=== PATIENT | male | born 1970 | race Caucasian/White ===

== ENCOUNTER 2016-12-15 12:25 | Inpatient (IN) | payer OTHER ==
[~2016-12-15] VITALS: Ht 172.7 cm; Wt 104.3 kg
--- NOTE | 2016-12-15 12:58 | ED GI/GU/ABDOMINAL COMPLAINT ---
History of Present Illness General Chief Complaint: Abdominal Pain/Flank Pain Stated Complaint: SBO ABD PAIN Source: patient, old records (from urgent care) Exam Limitations: no limitations Vital Signs & Intake/Output Vital Signs & Intake/Output Vital Signs Date Time Temp Pulse Resp B/P Pulse O2 O2 Flow FiO2 Ox Delivery Rate 12/15 1715 98.0 90 15 110/70 96 Room Air Room Air 12/15 1627 99.6 12/15 1624 99.6 84 15 119/68 95 Room Air Room Air 12/15 1549 102.0 12/15 1513 102.0 104 18 134/86 96 Room Air 12/15 1325 Room Air Room Air 12/15 1229 99.3 109 20 149/102 98 Room Air Allergies Coded Allergies: No Known Allergies (12/15/16) Reconcile Medications No Known Home Medications Triage Note: PT TO ED C/O ABD PAIN, ? SBO. SENT IN BY URGENT CARE. PT HAS HAD LOWER ABD PAIN X 3 DAYS. TOOK MAG CITRATE YESTERDAY WITH RELIEF. CONTINUES TO C/O ABD PAIN. DENIES VOMITING. PT STATES FEVERS YESTERDAY. TEMP NOW 99.3. Triage Nurses Notes Reviewed? yes HPI: Patient is a 46-year-old male presents complaining of diffuse abdominal pain. Pain onset on Thursday. Pain has been continuous is currently moderate, worsens with palpation. Patient reports that he has had minimal bowel movement since Thursday. Patient was only able to pass minimal watery stool this morning after drinking a bottle of magnesium citrate. Minimal flatus since onset of pain. Patient normally has a bowel movement 3-4 times a day. Patient went to an urgent care clinic prior to arrival, had an x-ray of his abdomen and was instructed to present to the emergency department for possible small bowel obstruction. Positive fever of 100.8 yesterday. Patient has not taken any antipyretics. Patient denies nausea, vomiting. Patient has 2 uncles with a history of colon cancer. (TYREL ADAN) Past History Travel History Traveled to [place] past 21 day No Medical History Any Pertinent Medical History? none Surgical History Surgical History: none Psychosocial History What is your primary language Romansh Tobacco Use: Current Daily Use Daily Tobacco Use Amount/Type: => 5 Cigarettes daily ETOH Use: occasional use Illicit Drug Use: denies illicit drug use Family History Hx Contributory? No (TYREL ADAN) Review of Systems Review of Systems Constitutional: Reports: fever. Denies: chills. EENTM: Reports: no symptoms. Respiratory: Denies: cough, short of breath. Cardiovascular: Denies: chest pain. GI: Reports: see HPI. Genitourinary: Reports: no symptoms. Denies: frequency, hematuria, urgency. Musculoskeletal: Reports: no symptoms. Skin: Reports: no symptoms. Neurological/Psychological: Reports: no symptoms. Hematologic/Endocrine: Reports: no symptoms. Immunologic/Allergic: Reports: no symptoms. (TYREL ADAN) Physical Exam Physical Exam General Appearance: well developed/nourished, alert, awake Head: atraumatic, normal appearance Eyes: Bilateral: normal appearance, PERRL, EOMI. Ears, Nose, Throat, Mouth: hearing grossly normal, moist mucous membrane Neck: normal inspection, supple, full range of motion Respiratory: normal breath sounds, no respiratory distress, lungs clear Cardiovascular: regular rate/rhythm (no murmur) Gastrointestinal: normal bowel sounds, soft, mild diffuse lower abdominal tenderness. Negative Castellon sign, negative Rovsing sign. No rebound, rigidity, guarding Back: normal inspection, normal range of motion Extremities: normal range of motion Neurologic/Psych: no motor/sensory deficits, awake, alert, oriented x 3, normal gait, normal mood/affect Skin: intact, normal color, warm/dry Core Measures ACS in differential dx? No Severe Sepsis Present: No Septic Shock Present: No (TYREL ADAN) Progress Differential Diagnosis: appendicitis, biliary colic, cholecystitis, diverticulitis, gastritis, hernia, ischemic bowel, inflamm bowel dis, pancreatitis, prostatitis, PUD/GERD, perforated viscous, SBO, UTI/pyelo Plan of Care: Orders Procedure Date/time Status Nothing by Mouth 12/16 B Active PROTHROMBIN TIME 12/16 599 Active MAGNESIUM 12/16 599 Active GLUCOSE 12/16 599 Active CBC WITHOUT DIFFERENTIAL 12/16 599 Active BASIC ELECTROLYTES PLUS BUN&CR 12/16 599 Active TYPE & SCREEN (NOT X-MATCH) 12/16 599 Active Nothing by Mouth 12/15 D Complete Admit to inpatient 12/15 1646 Active Code Status 12/15 1646 Active Patient Data 12/15 1554 Active Code Status 12/15 1548 Complete BLOOD CULTURE 12/15 1520 Active Add-on Test (ER Only) 12/15 1403 Active LACTIC ACID 12/15 1320 Complete URINALYSIS 12/15 1305 Complete LIPASE 12/15 1305 Complete COMPREHENSIVE METABOLIC PANEL 12/15 1305 Complete CBC WITHOUT DIFFERENTIAL 12/15 1305 Complete AMYLASE 12/15 1305 Complete VTE Mechanical Prophylaxis 12/15 UNK Active Vital Signs 12/15 UNK Active Intake & Output 12/15 UNK Active Current Medications Sig/Mehreen Start time Last Medication Dose Stop Time Status Admin Heparin Sodium 5,000 UNIT Q8 12/15 2200 AC (Porcine) Ampicillin Sodium/ 3,000 MG Q6 12/15 2100 UNVr Sulbactam Sodium (Unasyn) Sodium Chloride 100 ML (Normal Saline 0.9%) Ketorolac 30 MG Q6-PRN PRN 12/15 1600 UNVr Tromethamine (Toradol) Ondansetron HCl 4 MG Q6P PRN 12/15 1600 UNVr (Zofran) Laboratory Tests 12/15/16 1430: Urinalysis LIGHT H, Urine Color YEL, Urine Clarity CLEAR, Urine pH 7.0, Ur Specific [place] <= 1.005, Urine Protein NEG, Urine Ketones NEG, Urine Nitrite NEG, Urine Bilirubin NEG, Urine Urobilinogen 0.2, Ur Leukocyte Esterase NEG, Ur Microscopic SEDIMENT EXAMINED, Urine RBC RARE, Urine WBC RARE, Urine Hemoglobin TRACE-INTACT H, Urine Glucose NEG 12/15/16 1320: Anion Gap 13, Estimated GFR > 60, BUN/Creatinine Ratio 14.4, Glucose 120 H, Lactic Acid 1.2, Calcium 9.1, Total Bilirubin 1.6 H, AST 17, ALT 29, Alkaline Phosphatase 68, Total Protein 7.4, Albumin 4.3, Globulin 3.1, Albumin/Globulin Ratio 1.4, Amylase < 30 L, Lipase 93, CBC w Diff MAN DIFF ORDERED, RBC 4.80, MCV 87.1, MCH 30.0, RDW 13.2, MPV 7.2 L, Gran % 73.6, Lymphocytes % 11.6 L, Monocytes % 14.4 H, Eosinophils % 0.1, Basophils % 0.3, Absolute Granulocytes 14.2 H, Absolute Lymphocytes 2.2, Absolute Monocytes 2.8 H, Absolute Eosinophils 0, Absolute Basophils 0.1, Normocytic RBCs VERIFIED, Normochromic RBCs VERIFIED, PUBS MCHC 34.4 Microbiology 12/15 1550 BLOOD: Blood Culture - RECD 12/15 1540 BLOOD: Blood Culture - RECD 12/15/2016 1:13:15 PM: X-ray images and radiology report reviewed from patient's abdominal x-ray from the urgent care. Moderate stool present, nonspecific bowel gas pattern, no definite obstruction. 12/15/2016 3:18:39 PM: Results of CT scan discussed with patient and his family member. Patient reports he is having moderate discomfort but in 2 days to declined pain medication. Patient spiked a fever of 102F. IV Tylenol, cultures and IV unasyn ordered. Discussed with Dr. Graham. Discussed with Dr. Johnson: have surgical PA evaluate patient for admission. (AYANA LIMA,TYREL) Diagnostic Imaging: Viewed by Me: CT Scan. Discussed w/RAD: CT Scan. Radiology Impression: PATIENT: GRACIELA COLON PRESENT AGE : 46 PATIENT ACCOUNT NO: [id number] : 68 LOCATION: [facility] ORDERING PHYSICIAN: TYREL LIMA SERVICE DATE: 12/15/16 EXAM TYPE: CAT - CT ABD & PELVIS W IV CONTRAST EXAMINATION: CT ABDOMEN AND PELVIS WITH CONTRAST CLINICAL INFORMATION: Lower abdominal pain and tenderness. No bowel movement in 3 days. COMPARISON: None. TECHNIQUE: Multidetector volumetric imaging was performed of the abdomen and pelvis before and after the IV administration of 95 mL of Optiray 320 intravenous contrast. Sagittal and coronal reformatted images were obtained on the technologist's workstation. DLP: 704 mGy-cm FINDINGS: LUNG BASES: The visualized lung bases are unremarkable. LIVER, GALLBLADDER, AND BILIARY TREE: There is diffuse low-attenuation of the liver parenchyma, indicative of diffuse hepatic steatosis. The liver is otherwise normal in size, shape and contour. No contour deforming hepatic lesions are identified and there is no appreciable intrahepatic or extrahepatic biliary ductal dilatation. The gallbladder is unremarkable without evidence of radiopaque gallstones, gallbladder wall thickening, or obvious pericholecystic inflammatory changes. PANCREAS: Unremarkable. SPLEEN: Unremarkable. ADRENAL GLANDS: Unremarkable. KIDNEYS AND URETERS: The kidneys are normal in size and enhance homogeneously without solid parenchymal lesions. Hypoattenuating lesions within the mid and lower poles of the left kidney are too small to further characterize but likely reflect simple renal cortical cysts. No renal or ureteral stones are identified. There is mild bilateral hydroureter, likely secondary to acute inflammatory changes within the central pelvis. BLADDER: There is mild circumferential bladder wall thickening with diffuse surrounding inflammatory changes, likely direct sales representative of secondary reactive inflammatory changes given evidence of acute sigmoid diverticulitis. GASTROINTESTINAL TRACT: There is scattered colonic diverticulosis, notably involving the descending and rectosigmoid colon. Of note , there is diffuse circumferential thickening and pericolonic inflammatory changes surrounding a segment of the sigmoid colon, spanning approximately 10 cm in length within the central pelvis. There are extraluminal foci of air, indicative of perforation. There is a tiny fluid collection within the right lateral aspect of the hemipelvis measuring 1.2 cm (series 602, image 73). This could reflect a developing perisigmoid abscess. As noted above, there are diffuse inflammatory changes within the central pelvis as well as surrounding the urinary bladder. Inflammatory changes surrounding the urinary bladder likely represent secondary reactive inflammatory changes given evidence of acute perforated sigmoid diverticulitis. Abdominal and pelvic bowel loops are normal in caliber, without findings indicative of obstruction or ileus. Nonvisualization of the appendix. No acute findings within the right hemiabdomen to suggest acute appendicitis. ABDOMINAL WALL: No significant hernia is appreciated. LYMPH NODES: No significant mesenteric, retroperitoneal or bilateral inguinal adenopathy. There are subcentimeter lymph nodes within the central pelvis, likely reactive. VASCULAR: Scattered atherosclerosis of the abdominal aorta and its branching vessels, without aneurysmal dilatation. Patent abdominal vasculature. PELVIC VISCERA: Unremarkable. OSSEOUS STRUCTURES: No acute osseous abnormality. Normal alignment of the imaged thoracolumbar spine. No visible destructive osseous lesions. IMPRESSION: 1. Scattered colonic diverticulosis, notably involving the descending and rectosigmoid colon. Diffuse circumferential thickening and pericolonic inflammatory changes surrounding a segment of the sigmoid colon, spanning approximately 10 cm in length within the central pelvis. There are extraluminal foci of air adjacent to the inflamed sigmoid colon, indicative of perforation. There is a small 1.2 cm rim-enhancing fluid collection within the right hemipelvis, most likely direct sales representative of a tiny, perisigmoid abscess. 2. Circumferential thickening of the urinary bladder with surrounding inflammatory changes. This likely reflects secondary reactive inflammatory changes given evidence of adjacent acute perforated sigmoid diverticulitis. Correlate with symptoms of acute cystitis. Urinalysis and urine culture may be obtained to exclude a superimposed infectious or inflammatory cystitis. 3. Diffuse hepatic steatosis. 4. No significant retained stool within the colon no findings indicative of obstruction. This critical result was discussed with Tyrel Oquendo PA-C at 3:02 PM on 12/15/2016 and it was ascertained that the content and urgency of the report was understood at the time of direct communication. DICTATED BY: RENETTA CHAPMAN MD DATE/TIME DICTATED :12/15/161451 STEERSMAN:TONYA DATE/TIME TRANSCRIBED:12/15/161451 CONFIDENTIAL, DO NOT COPY WITHOUT APPROPRIATE AUTHORIZATION. < Electronically signed in Other Vendor System> SIGNED BY: RENETTA CHAPMAN MD 12/15/16 1507 Initial ED EKG: none (TYREL ADAN) Departure Departure Time of Disposition: 1514 Disposition: STILL A PATIENT Condition: Stable Clinical Impression Primary Impression: Perforation of sigmoid colon due to diverticulitis Referrals: PATIENT HAS NO PRIMARY CARE DR (PCP/Family) Departure Forms: Customer Survey General Discharge Information Prescriptions: Current Visit Scripts No Known Home Medications Admission Note Spoke With: GENESIS DE LOS SANTOS,JANN Isidro Documentation of Exam: Documentation of any treatments & extenuating circumstances including Concerns Regarding Discharge (functional status, medication knowledge or non-compliance, living conditions, etc.) that warrant an admission rather than observation: Serial abdominal exams, IV antibiotics, nothing by mouth. Possible repeat CT scan if not clinically improving. May require IR or surgical intervention if not responding to conservative management. (TYREL ADAN) PA/CHILD CARE CENTER ASSISTANT DIRECTOR Co-Sign Statement Statement: ED Attending supervision documentation- [x] I saw and evaluated the patient. I have also reviewed all the pertinent lab results and diagnostic results. I agree with the findings and the plan of care as documented in the PA's/CHILD CARE CENTER ASSISTANT DIRECTOR's documentation. [] I have reviewed the ED Record and agree with the PA's/CHILD CARE CENTER ASSISTANT DIRECTOR's documentation. [] Additions or exceptions (if any) to the PAs/CHILD CARE CENTER ASSISTANT DIRECTOR's note and plan are summarized below: [] (CHAD GRAHAM DO)
[2016-12-15 13:40] LABS: ABSOLUTE BASOPHIL COUNT 0.1 /CUMM (0.0-0.2); ABSOLUTE EOSINOPHIL COUNT 0 /CUMM (0.0-0.7); ABSOLUTE GRANULOCYTE CT 14.2 /CUMM (1.4-6.5); ABSOLUTE LYMPH COUNT 2.2 /CUMM (1.2-3.4); ABSOLUTE MONOCYTE COUNT 2.8 /CUMM (0.10-0.60); BASOPHIL % 0.3 % (0.0-2.0); EOSINOPHIL % 0.1 % (0-5); GRANULOCYTE % 73.6 % (42.2-75.2); HEMATOCRIT 41.9 % (42-52); MEAN CORPUSCULAR HGB CONC 34.4 G/DL (33.0-37.0); MEAN CORPUSCULAR VOLUME 87.1 FL (80.0-94.0); MEAN PLATELET VOLUME 7.2 FL (7.4-10.4); PLATELET COUNT 231 /CUMM (130-400); RBC DISTRIBUTION WIDTH 13.2 % (11.5-14.5); WHITE BLOOD CELL COUNT 19.3 /CUMM (4.8-10.8)
--- NOTE | 2016-12-15 15:07 | CT SCAN REPORT ---
EXAMINATION: CT ABDOMEN AND PELVIS WITH CONTRAST CLINICAL INFORMATION: Lower abdominal pain and tenderness. No bowel movement in 3 days. COMPARISON: None. TECHNIQUE: Multidetector volumetric imaging was performed of the abdomen and pelvis before and after the IV administration of 95 mL of Optiray 320 intravenous contrast. Sagittal and coronal reformatted images were obtained on the technologist's workstation. DLP: 704 mGy-cm FINDINGS: LUNG BASES: The visualized lung bases are unremarkable. LIVER, GALLBLADDER, AND BILIARY TREE: There is diffuse low-attenuation of the liver parenchyma, indicative of diffuse hepatic steatosis. The liver is otherwise normal in size, shape and contour. No contour deforming hepatic lesions are identified and there is no appreciable intrahepatic or extrahepatic biliary ductal dilatation. The gallbladder is unremarkable without evidence of radiopaque gallstones, gallbladder wall thickening, or obvious pericholecystic inflammatory changes. PANCREAS: Unremarkable. SPLEEN: Unremarkable. ADRENAL GLANDS: Unremarkable. KIDNEYS AND URETERS: The kidneys are normal in size and enhance homogeneously without solid parenchymal lesions. Hypoattenuating lesions within the mid and lower poles of the left kidney are too small to further characterize but likely reflect simple renal cortical cysts. No renal or ureteral stones are identified. There is mild bilateral hydroureter, likely secondary to acute inflammatory changes within the central pelvis. BLADDER: There is mild circumferential bladder wall thickening with diffuse surrounding inflammatory changes, likely national sales representative of secondary reactive inflammatory changes given evidence of acute sigmoid diverticulitis. GASTROINTESTINAL TRACT: There is scattered colonic diverticulosis, notably involving the descending and rectosigmoid colon. Of note, there is diffuse circumferential thickening and pericolonic inflammatory changes surrounding a segment of the sigmoid colon, spanning approximately 10 cm in length within the central pelvis. There are extraluminal foci of air, indicative of perforation. There is a tiny fluid collection within the right lateral aspect of the hemipelvis measuring 1.2 cm (series 602, image 73). This could reflect a developing perisigmoid abscess. As noted above, there are diffuse inflammatory changes within the central pelvis as well as surrounding the urinary bladder. Inflammatory changes surrounding the urinary bladder likely represent secondary reactive inflammatory changes given evidence of acute perforated sigmoid diverticulitis. Abdominal and pelvic bowel loops are normal in caliber, without findings indicative of obstruction or ileus. Nonvisualization of the appendix. No acute findings within the right hemiabdomen to suggest acute appendicitis. ABDOMINAL WALL: No significant hernia is appreciated. LYMPH NODES: No significant mesenteric, retroperitoneal or bilateral inguinal adenopathy. There are subcentimeter lymph nodes within the central pelvis, likely reactive. VASCULAR: Scattered atherosclerosis of the abdominal aorta and its branching vessels, without aneurysmal dilatation. Patent abdominal vasculature. PELVIC VISCERA: Unremarkable. OSSEOUS STRUCTURES: No acute osseous abnormality. Normal alignment of the imaged thoracolumbar spine. No visible destructive osseous lesions. IMPRESSION: 1. Scattered colonic diverticulosis, notably involving the descending and rectosigmoid colon. Diffuse circumferential thickening and pericolonic inflammatory changes surrounding a segment of the sigmoid colon, spanning approximately 10 cm in length within the central pelvis. There are extraluminal foci of air adjacent to the inflamed sigmoid colon, indicative of perforation. There is a small 1.2 cm rim-enhancing fluid collection within the right hemipelvis, most likely national sales representative of a tiny, perisigmoid abscess. 2. Circumferential thickening of the urinary bladder with surrounding inflammatory changes. This likely reflects secondary reactive inflammatory changes given evidence of adjacent acute perforated sigmoid diverticulitis. Correlate with symptoms of acute cystitis. Urinalysis and urine culture may be obtained to exclude a superimposed infectious or inflammatory cystitis. 3. Diffuse hepatic steatosis. 4. No significant retained stool within the colon no findings indicative of obstruction. This critical result was discussed with Tyrel Oquendo PA-C at 3:02 PM on 12/15/2016 and it was ascertained that the content and urgency of the report was understood at the time of direct communication.
--- NOTE | 2016-12-15 15:57 | Admission Core Measures ---
Admission Lab Results I reviewed the following labs: Laboratory Tests 12/15 12/15 1430 1320 Chemistry Sodium (137 - 145 mmol/L) 134 L Potassium (3.5 - 5.1 mmol/L) 4.1 Chloride (98 - 107 mmol/L) 98 Carbon Dioxide (22 - 30 mmol/L) 24 Anion Gap (5 - 16) 13 BUN (9 - 20 mg/dL) 13 Creatinine (0.7 - 1.2 mg/dL) 0.9 Estimated GFR (>60 ml/min) > 60 BUN/Creatinine Ratio (7 - 25 %) 14.4 Glucose (65 - 99 mg/dL) 120 H Lactic Acid (0.7 - 2.1 mmol/L) 1.2 Calcium (8.4 - 10.2 mg/dL) 9.1 Total Bilirubin (0.2 - 1.3 mg/dL) 1.6 H AST (17 - 59 U/L) 17 ALT (21 - 72 U/L) 29 Alkaline Phosphatase (< 127 U/L) 68 Total Protein (6.3 - 8.2 g/dL) 7.4 Albumin (3.5 - 5.0 g/dL) 4.3 Globulin (1.9 - 4.2 gm/dL) 3.1 Albumin/Globulin Ratio (1.1 - 2.2 %) 1.4 Amylase (30 - 110 U/L) < 30 L Lipase (23 - 300 U/L) 93 Hematology CBC w Diff MAN DIFF ORDERED WBC (4.8 - 10.8 /CUMM) 19.3 H RBC (4.70 - 6.10 /CUMM) 4.80 Hgb (14.0 - 18.0 G/DL) 14.4 Hct (42 - 52 %) 41.9 L MCV (80.0 - 94.0 FL) 87.1 MCH (27.0 - 31.0 PG) 30.0 RDW (11.5 - 14.5 %) 13.2 Plt Count (130 - 400 /CUMM) 231 MPV (7.4 - 10.4 FL) 7.2 L Gran % (42.2 - 75.2 %) 73.6 Lymphocytes % (20.5 - 51.1 %) 11.6 L Monocytes % (1.7 - 9.3 %) 14.4 H Eosinophils % (0 - 5 %) 0.1 Basophils % (0.0 - 2.0 %) 0.3 Absolute Granulocytes (1.4 - 6.5 /CUMM) 14.2 H Absolute Lymphocytes (1.2 - 3.4 /CUMM) 2.2 Absolute Monocytes (0.10 - 0.60 /CUMM) 2.8 H Absolute Eosinophils (0.0 - 0.7 /CUMM) 0 Absolute Basophils (0.0 - 0.2 /CUMM) 0.1 Normocytic RBCs VERIFIED Normochromic RBCs VERIFIED PUBS MCHC (33.0 - 37.0 G/DL) 34.4 Urines Urinalysis LIGHT H Urine Color (YEL,AMB,STR) YEL Urine Clarity (CLEAR) CLEAR Urine pH (5.0 - 8.0) 7.0 Ur Specific [place] (1.001 - 1.035) <= 1.005 Urine Protein (NEG,<30 MG/DL) NEG Urine Ketones (NEG) NEG Urine Nitrite (NEG) NEG Urine Bilirubin (NEG) NEG Urine Urobilinogen (0.1 - 1.0 EU/dl) 0.2 Ur Leukocyte Esterase (NEG) NEG Ur Microscopic SEDIMENT EXAMINED Urine RBC (0 - 5 /HPF) RARE Urine WBC (0 - 2 /HPF) RARE Urine Hemoglobin (NEG) TRACE-INTACT H Urine Glucose (N MG/DL) NEG Admission Meds I reviewed the following Meds: Current Medications Sig/Mehreen Start time Last Medication Dose Stop Time Status Admin Ampicillin Sodium/ 3,000 MG Q6 12/15 2100 UNVr Sulbactam Sodium (Unasyn) Sodium Chloride 100 ML (Normal Saline 0.9%) Heparin Sodium 5,000 UNIT Q8 12/15 2200 UNVr (Porcine) Ketorolac 30 MG Q6-PRN PRN 12/15 1600 UNVr Tromethamine (Toradol) Ondansetron HCl 4 MG Q6P PRN 12/15 1600 UNVr (Zofran) Potassium Chloride 20 MEQ Q8H 12/15 1600 UNVr (KCl 20MEQ in D5/ N.S. 1000 ML bag) Dextrose/Sodium 1,000 ML Chloride (D5-Normal Saline) Acute Coronary Syndrome Inclusion Criteria ACS Diagnosis No Inpatient Core Measures LDL Reminder: If No, please order W/I first 24hr of stay Congestive Heart Failure Inclusion Criteria CHF Diagnosis No Cerebrovascular accident Inclusion Criteria CVA/TIA Diagnosis No Inpatient Core Measures Bedside Swallow Eval Reminder: If BSE failed, place ST order Antithrombotic Reminder: Order Antithrombotic Medication by end of day 2 Antithrombotic Reminder: Document Reason Antithrombotic Not ordered by end of day 2 AFIB/Flutter Reminder: If Present, add to problem list AFIB/Flutter Reminder: Order Anticoag Medication for pts with AFIB/Flutter Atherosclerosis Reminder: If Present, add to problem list LDL Reminder: If No, please order W/I first 24hr of stay PT Order Reminder: If No, please order Venous thromboembolism Inpatient Core Measures VTE Risk Factors: Age > 40, Obesity, Smoking VTE Prophylaxis Ordered Inpt Mech & Pharm No Mech VTE prophylaxis d/t No contraindications No VTE Pharm Prophylaxis d/t No contraindications Inclusion Criteria - Per Current guidelines, there needs to be overlap - treatment for the first 5 days of Warfarin therapy. - Parenteral Anticoagulation (IV or SC) needs to be - given along with Warfarin therapy. VTE Diagnosis No VTE Type NONE VTE Confirmed by (Test) NONE Problem List As ranked by this Provider includes Assessment & Plan 1. Perforation of sigmoid colon due to diverticulitis HOME MEDS Home Med List No Known Home Medications
--- NOTE | 2016-12-15 16:08 | History & Physical Pre-Op ---
ACRLITA CONNER 12/15/16 1557: General Information and HPI MD Statement: I have seen and personally examined GRACIELA COLON and documented this H&P. The patient is a 46 year old M who presented with a patient stated chief complaint of [ABDOMINAL PAIN]. Source of Information: patient, family Exam Limitations: no limitations History of Present Illness: This 46 year old white male, with no reported medical problems, presents with a 3 day history of abdominal pain. He reports the pain started around 6 pm on thursday, and continued up until presenting to the ED today. He took milk of magnesia on thursday hoping the pain would resolve after having bowel movements, but he reports the pain continued and fevers started soon afterwards. He denies any history of diverticulitis. Reports voiding without difficulty. No dizziness. No shortness of breath. No chest pains. 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 comfortable. no acute distress. Skin - warm, dry, and smooth. no rashes. Lungs - clear bilaterally. no w/r/r. Cardiac - s1s2. reg. Abdomen - soft. bowel sounds appreciated. localized left lower and suprapubic tenderness. Extremities - warm bilaterally. no c/c/e. calves soft and nontender b/l. Neuro - no focal deficits. speech smooth and coordinated. no motor or sensory deficits. Last 24 Hrs of Labs/Jose: Laboratory Tests 12/15/16 1430: Urinalysis LIGHT H, Urine Color YEL, Urine Clarity CLEAR, Urine pH 7.0, Ur Specific [place] <= 1.005, Urine Protein NEG, Urine Ketones NEG, Urine Nitrite NEG, Urine Bilirubin NEG, Urine Urobilinogen 0.2, Ur Leukocyte Esterase NEG, Ur Microscopic SEDIMENT EXAMINED, Urine RBC RARE, Urine WBC RARE, Urine Hemoglobin TRACE-INTACT H, Urine Glucose NEG 12/15/16 1320: Anion Gap 13, Estimated GFR > 60, BUN/Creatinine Ratio 14.4, Glucose 120 H, Lactic Acid 1.2, Calcium 9.1, Total Bilirubin 1.6 H, AST 17, ALT 29, Alkaline Phosphatase 68, Total Protein 7.4, Albumin 4.3, Globulin 3.1, Albumin/Globulin Ratio 1.4, Amylase < 30 L, Lipase 93, CBC w Diff MAN DIFF ORDERED, RBC 4.80, MCV 87.1, MCH 30.0, RDW 13.2, MPV 7.2 L, Gran % 73.6, Lymphocytes % 11.6 L, Monocytes % 14.4 H, Eosinophils % 0.1, Basophils % 0.3, Absolute Granulocytes 14.2 H, Absolute Lymphocytes 2.2, Absolute Monocytes 2.8 H, Absolute Eosinophils 0, Absolute Basophils 0.1, Normocytic RBCs VERIFIED, Normochromic RBCs VERIFIED, PUBS MCHC 34.4 Microbiology 12/15 1550 BLOOD: Blood Culture - RECD 12/15 1540 BLOOD: Blood Culture - RECD Diagnostic Data Other Results EXAM TYPE: CAT - CT ABD & PELVIS W IV CONTRAST EXAMINATION: CT ABDOMEN AND PELVIS WITH CONTRAST CLINICAL INFORMATION: Lower abdominal pain and tenderness. No bowel movement in 3 days. COMPARISON: None. TECHNIQUE: Multidetector volumetric imaging was performed of the abdomen and pelvis before and after the IV administration of 95 mL of Optiray 320 intravenous contrast. Sagittal and coronal reformatted images were obtained on the technologist's workstation. DLP: 704 mGy-cm FINDINGS: LUNG BASES: The visualized lung bases are unremarkable. LIVER, GALLBLADDER, AND BILIARY TREE: There is diffuse low-attenuation of the liver parenchyma, indicative of diffuse hepatic steatosis. The liver is otherwise normal in size, shape and contour. No contour deforming hepatic lesions are identified and there is no appreciable intrahepatic or extrahepatic biliary ductal dilatation. The gallbladder is unremarkable without evidence of radiopaque gallstones, gallbladder wall thickening, or obvious pericholecystic inflammatory changes. PANCREAS: Unremarkable. SPLEEN: Unremarkable. ADRENAL GLANDS: Unremarkable. KIDNEYS AND URETERS: The kidneys are normal in size and enhance homogeneously without solid parenchymal lesions. Hypoattenuating lesions within the mid and lower poles of the left kidney are too small to further characterize but likely reflect simple renal cortical cysts. No renal or ureteral stones are identified. There is mild bilateral hydroureter, likely secondary to acute inflammatory changes within the central pelvis. BLADDER: There is mild circumferential bladder wall thickening with diffuse surrounding inflammatory changes, likely it sales representative of secondary reactive inflammatory changes given evidence of acute sigmoid diverticulitis. GASTROINTESTINAL TRACT: There is scattered colonic diverticulosis, notably involving the descending and rectosigmoid colon. Of note, there is diffuse circumferential thickening and pericolonic inflammatory changes surrounding a segment of the sigmoid colon, spanning approximately 10 cm in length within the central pelvis. There are extraluminal foci of air, indicative of perforation. There is a tiny fluid collection within the right lateral aspect of the hemipelvis measuring 1.2 cm (series 602, image 73). This could reflect a developing perisigmoid abscess. As noted above, there are diffuse inflammatory changes within the central pelvis as well as surrounding the urinary bladder. Inflammatory changes surrounding the urinary bladder likely represent secondary reactive inflammatory changes given evidence of acute perforated sigmoid diverticulitis. Abdominal and pelvic bowel loops are normal in caliber, without findings indicative of obstruction or ileus. Nonvisualization of the appendix. No acute findings within the right hemiabdomen to suggest acute appendicitis. ABDOMINAL WALL: No significant hernia is appreciated. LYMPH NODES: No significant mesenteric, retroperitoneal or bilateral inguinal adenopathy. There are subcentimeter lymph nodes within the central pelvis, likely reactive. VASCULAR: Scattered atherosclerosis of the abdominal aorta and its branching vessels, without aneurysmal dilatation. Patent abdominal vasculature. PELVIC VISCERA: Unremarkable. OSSEOUS STRUCTURES: No acute osseous abnormality. Normal alignment of the imaged thoracolumbar spine. No visible destructive osseous lesions. IMPRESSION: 1. Scattered colonic diverticulosis, notably involving the descending and rectosigmoid colon. Diffuse circumferential thickening and pericolonic inflammatory changes surrounding a segment of the sigmoid colon, spanning approximately 10 cm in length within the central pelvis. There are extraluminal foci of air adjacent to the inflamed sigmoid colon, indicative of perforation. There is a small 1.2 cm rim-enhancing fluid collection within the right hemipelvis, most likely it sales representative of a tiny, perisigmoid abscess. 2. Circumferential thickening of the urinary bladder with surrounding inflammatory changes. This likely reflects secondary reactive inflammatory changes given evidence of adjacent acute perforated sigmoid diverticulitis. Correlate with symptoms of acute cystitis. Urinalysis and urine culture may be obtained to exclude a superimposed infectious or inflammatory cystitis. 3. Diffuse hepatic steatosis. 4. No significant retained stool within the colon no findings indicative of obstruction. This critical result was discussed with Tyrel Oquendo PA-C at 3:02 PM on 12/15/2016 and it was ascertained that the content and urgency of the report was understood at the time of direct communication. DICTATED BY: RENETTA CHAPMAN MD DATE/TIME DICTATED:12/15/161451 CLUTCH MECHANIC:TONYA DATE/TIME TRANSCRIBED:12/15/161451 Assessment/Plan Assessment/Plan: This 46 year old white male, with no reported past medical history, presents with acute perforated diverticulitis with small seven-sigmoid abscess keep npo / ivf iv unasyn toradol prn pain zofran prn nausea hep sc - dvt ppx serial exams and labs d/w As Ranked By This Provider Problem List: 1. Perforation of sigmoid colon due to diverticulitis GENESIS DE LOS SANTOS,JANN Dwaine 12/15/16 1717: Attending MD Review Statement Attending Statement Attending MD Statement: examined this patient, discuss w/resident/PA/PHLEBOTOMY COORDINATOR, reviewed images Attending Assessment/Plan: 46yo relatively healthy male presents with 4 days of progressive lower abdominal pain, fevers and obstipation. Examination reveals mild suprapubic and LLQ tenderness. [id number]. CT images personally reviewed. Findings show inflammatory changes c/w diverticulitis. There is possible extraluminal gas seen on CT however, the sigmoid colon is quite tortuous and the bubble of gas may be in fact intraluminal. Given fever 102F, he will be admitted for bowel rest, broad spectrum IV abx, and serial abdominal examination.
[2016-12-15 18:05] VITALS: BP 140/80
[2016-12-16 00:01] VITALS: BP 118/60
[2016-12-16 07:45] LABS: ABSOLUTE BASOPHIL COUNT 0 /CUMM (0.0-0.2); ABSOLUTE EOSINOPHIL COUNT 0.1 /CUMM (0.0-0.7); ABSOLUTE MONOCYTE COUNT 1.7 /CUMM (0.10-0.60); EOSINOPHIL % 0.4 % (0-5); RED BLOOD CELL CT 4.16 /CUMM (4.70-6.10)
[2016-12-16 08:01] LABS: ABSOLUTE GRANULOCYTE CT 9.1 /CUMM (1.4-6.5); ABSOLUTE LYMPH COUNT 1.6 /CUMM (1.2-3.4); BASOPHIL % 0.2 % (0.0-2.0); GRANULOCYTE % 72.9 % (42.2-75.2); MEAN CORPUSCULAR HGB 30.3 PG (27.0-31.0); MEAN CORPUSCULAR HGB CONC 34.2 G/DL (33.0-37.0); MEAN CORPUSCULAR VOLUME 88.8 FL (80.0-94.0); MEAN PLATELET VOLUME 7.4 FL (7.4-10.4); PLATELET COUNT 215 /CUMM (130-400); RBC DISTRIBUTION WIDTH 13.6 % (11.5-14.5); WHITE BLOOD CELL COUNT 12.4 /CUMM (4.8-10.8)
[2016-12-16 08:09] LABS: HEMATOCRIT 36.9 % (42-52)
[2016-12-16 08:19] VITALS: BP 128/70
[2016-12-16 08:26] LABS: PT 13.6 SEC (9.4-12.5)
--- NOTE | 2016-12-16 15:02 | PN- General Surgery ---
Subjective Subjective: Feels comfortable. Reports improving discomfort. No further fevers overnight. No chills/sweats. Eager to try clears. Ambulating without difficulty. No shortness of breath. No chest pains. Voiding well without difficulty. Objective Vital Signs and I&Os Vital Signs Date Time Temp Pulse Resp B/P Pulse O2 O2 Flow FiO2 Ox Delivery Rate 12/16 0819 98.3 84 18 128/70 96 Room Air 12/16 0001 98.1 95 18 118/60 95 Room Air 12/15 1805 98.0 94 18 140/80 96 Room Air 12/15 1715 98.0 90 15 110/70 96 Room Air Room Air 12/15 1627 99.6 12/15 1624 99.6 84 15 119/68 95 Room Air Room Air 12/15 1549 102.0 12/15 1513 102.0 104 18 134/86 96 Room Air Intake & Output 12/16 1600 12/16 0800 12/16 0000 12/15 1600 12/15 0800 12/15 0000 Intake Total 2440 1000 0 Output Total 1999 Balance 440 1000 0 Intake, IV 1000 1000 Intake, Oral 1440 0 Output, Urine 2000 Patient 230 lb 235 lb Weight Physical Exam: General - alert & oriented x 3. comfortable. no acute distress. Lungs - clear bilaterally. no w/r/r. Cardiac - s1s2. reg. Abdomen - soft. improving left lower quadrant and suprapubic tenderness. active bowel sounds. Extremities - warm bilaterally. no c/c/e. calves soft and nontender b/l. Assessment/Plan Assessment/Plan This 46 year old white male with no reported pmh is hospital day#1 acute sigmoid diverticulitis with microperforation, improving try clears. decrease iv fluids f/u labs and blood cxs continue iv unasyn for intra-abdominal infection oob/ambulation encouraged toradol prn pain control hep sc - dvt ppx d/w Core Measures/Miscellaneous Venous Thromboembolism VTE Risk Factors: Age > 40, Smoking VTE Contraindications: No Contraindications VTE Prophylaxis Ordered Inpt Mech & Pharm VTE Diagnosis: No VTE Type: NONE VTE Confirmed by (Test): NONE Beta Amena Is Beta Amena a Home Med? No Antibiotics Is Patient on Antibiotics? Yes If Yes: infection
[2016-12-16 16:28] VITALS: BP 118/88
--- NOTE | 2016-12-17 07:02 | PN- General Surgery ---
See Addendum Subjective Subjective: The patient was seen this morning he reports that his pain is only minimal and has improved since admission. He is tolerating a clear liquid diet without any increased pain, nausea, or vomiting. He had a loose bowel movement earlier this morning and has no other complaints the current time. Objective Vital Signs and I&Os Vital Signs Date Time Temp Pulse Resp B/P Pulse O2 O2 Flow FiO2 Ox Delivery Rate 12/16 1628 98.5 85 20 118/88 99 Room Air 12/16 0819 98.3 84 18 128/70 96 Room Air Intake & Output 12/17 0800 12/17 0000 12/16 1600 12/16 0800 12/16 0000 12/15 1600 Intake Total 740 1050 2440 1000 0 Output Total 600 2000 Balance 740 279 922 7271 0 Intake, IV 521 935 7510 1000 Intake, Oral 278 698 7851 0 Output, Urine 600 2000 Patient 230 lb 235 lb Weight Physical Exam: Gen.: Alert and in no obvious distress Skin: Warm and dry Abdomen: Soft, obese, nondistended, mild left lower quadrant tenderness without rebound or guarding, bowel sounds positive. Extremities: Bilateral lower extremities warm without calf tenderness or significant edema. Assessment/Plan Assessment/Plan Assessment: 46-year-old male with acute perforated diverticulitis. The patient is currently undergoing conservative management and showing improvement. Plan: Hep-Lock IV fluids Advanced to a full liquid diet with toast Continue IV antibiotics Follow-up morning laboratory studies Out of bed and ambulate GI and DVT prophylaxis If patient tolerates full liquids and his white count is trending down there is a possibility that the patient's may be advanced to regular diet and be discharged later today or early or tomorrow. Core Measures/Miscellaneous Venous Thromboembolism VTE Risk Factors: Age > 40, Smoking VTE Contraindications: No Contraindications VTE Prophylaxis Ordered Inpt Mech & Pharm VTE Diagnosis: No VTE Type: NONE VTE Confirmed by (Test): NONE Beta Amena Is Beta Amena a Home Med? No Antibiotics Is Patient on Antibiotics? Yes If Yes: infection
[2016-12-17] MEDS ORDERED: AUGMENTIN 875-1 EACH PO (07:06)
--- NOTE | 2016-12-17 07:13 | Patient Discharge Instructions ---
Discharge Instructions General Discharge Information You were seen/treated for: Acute perforated diverticulitis You had these procedures: None Watch for these problems: Nausea, vomiting, fever, worsening pain, flulike illness Special Instructions: Low fiber, low residue diet until you're infection has cleared Diet Recommended Diet: Low Residue Activity Full Activity/No Limits: Yes Acute Coronary Syndrome Inclusion Criteria At DC or during hospital stay patient has or had the following: ACS DIAGNOSIS No Discharge Core Measures Meds if any: Prescribed or Continued at Discharge Meds if any: NOT Prescribed or Continued at Discharge Congestive Heart Failure Inclusion Criteria At DC or during hospital stay patient has or had the following: CHF DIAGNOSIS No Discharge Core Measures Meds if any: Prescribed or Continued at Discharge Meds if any: NOT Prescribed or Continued at Discharge Cerebrovascular accident Inclusion Criteria At DC or during hospital stay patient has or had the following: CVA/TIA Diagnosis No Discharge Core Measures Meds if any: Prescribed or Continued at Discharge Meds if any: NOT Prescribed or Continued at Discharge Venous thromboembolism Inclusion Criteria VTE Diagnosis No VTE Type NONE VTE Confirmed by (Test) NONE Discharge Core Measures - Per Current guidelines, there needs to be overlap - treatment for the first 5 days of Warfarin therapy. - If discharged on Warfarin prior to 5 days of - overlap therapy, the patient will need to be - assessed for post discharge needs including - *Post discharge parental anticoagulation - *Warfarin and/or parental anticoagulation education - *Follow up date to check INR post discharge At least 5 days overlap therapy as Inpatient No Meds if any: Prescribed or Continued at Discharge Note: Overlap Therapy is Warfarin and Anticoagulant Meds if any: NOT Prescribed or Continued at Discharge
[2016-12-17 08:00] VITALS: BP 118/80
[2016-12-17 08:08] LABS: ABSOLUTE BASOPHIL COUNT 0 /CUMM (0.0-0.2); ABSOLUTE EOSINOPHIL COUNT 0.1 /CUMM (0.0-0.7); ABSOLUTE GRANULOCYTE CT 6.5 /CUMM (1.4-6.5); ABSOLUTE LYMPH COUNT 1.8 /CUMM (1.2-3.4); ABSOLUTE MONOCYTE COUNT 1.4 /CUMM (0.10-0.60); BASOPHIL % 0.4 % (0.0-2.0); EOSINOPHIL % 1.5 % (0-5); GRANULOCYTE % 66.2 % (42.2-75.2); HEMATOCRIT 36.8 % (42-52); MEAN CORPUSCULAR HGB 30.1 PG (27.0-31.0); MEAN CORPUSCULAR HGB CONC 33.4 G/DL (33.0-37.0); MEAN CORPUSCULAR VOLUME 90.2 FL (80.0-94.0); MEAN PLATELET VOLUME 7.4 FL (7.4-10.4); PLATELET COUNT 222 /CUMM (130-400); RBC DISTRIBUTION WIDTH 13.3 % (11.5-14.5); RED BLOOD CELL CT 4.07 /CUMM (4.70-6.10); WHITE BLOOD CELL COUNT 9.9 /CUMM (4.8-10.8)
--- NOTE | 2016-12-17 13:21 | Surg Short-stay <48hrs Dis Sum ---
Visit Information Visit Dates Admission Date: 12/15/16 Discharge Date: 12/17/16 Surgical Short Stay DC Summary Admission Diagnosis: Diverticulitis Final Diagnosis: same Procedure(s): none Summary/Significant Findings: Patient admitted for bowel rest and IV antibiotics for acute diverticulitits. He responded well to medical management and was discharged after tolerating a diet. WBC was normalized. Condition at Discharge: good Discharge Disposition: home or self care Discharge instructions provided to patient/family: Yes Post discharge follow-up plan: 1-2 weeks.
== END 2016-12-17 15:35 | DRG 392 ==
LOC: ENRESERVTM → ENRESERVDT → ERH 12:25 → ENPENDDIS 16:46 → 2NB 16:46 → ERHI 16:46 → 2NB 18:07
PROVIDERS: Physician Assistant; ADMIT Surgery
DX: K57.20 Diverticulitis of large intestine with perforation and abscess without bleeding (principal); F17.210 Nicotine dependence, cigarettes, uncomplicated
CPT/HCPCS: 2NBSP; 74177; 81001; 82436; 87040; 96361; 96374; 96375; J0131; J1644; J1885; J2405; J7042; S5012